=== PATIENT | female | born 1985 | race Caucasian/White ===

== ENCOUNTER 2020-11-29 09:05 | Day surgery (SDC) | payer OTHER ==
[~2020-11-29] VITALS: Ht 162.6 cm; Wt 72.3 kg
[~2020-11-29 09:05] MED LIST: B COMPLEX WITH1 EACH PO; PROP10 PO
--- NOTE | 2020-11-29 10:27 | NUR ---
Ambulatory in Day Surgery History, Chart, Medications and Allergies reviewed before start of procedure.Lungs clear T/O to Auscultation. Patient confirms NPO status and agrees with scheduled surgery. PT TEMPERATURE TAKEN AFTER WARM BLANKETS HAD BEEN ON. SHOWED SEDATION RN EKG STRIP DUE TO IRREGULAR RYTHYM.
--- NOTE | 2020-11-29 10:31 | NUR ---
11/29/20 1031 Alexsander Brandt History, Chart, Medications and Allergies reviewed before start of procedure. MONITOR INTACT WITH CONTINUOUS PULSE OXIMETRY AND INTERMITTENT BP. 3-LEAD EKG REVIEWED WITH PHYSICIAN PRIOR TO START OF PROCEDURE. O2 VIA N/C INTACT THROUGHOUT SEDATION/PROCEDURE. HURRICAINE SPRAY TO OROPHARYX. Bite Block Placed. PATIENT DETERMINED TO BE ASA APPROPRIATE FOR PROPOFOL SEDATION PRIOR TO START OF PROCEDURE BY DR. SMART.
--- NOTE | 2020-11-29 11:25 | NUR ---
Patient up to Ambulate independently. Gait steady. Discharge instructions reviewed with patient. Patient verbalizes understanding. Copy given to patient to take home. Discharged via wheelchair to private car for ride home.
== END 2020-11-29 11:26 | disposition home or self-care (01) ==
LOC: ORSCMMR 09:05 → ORD 10:00 → ORSCMMR 10:00
PROVIDERS: Internal Medicine Gastroenterology
PROC: 0DB98ZX Excision of Duodenum, Via Natural or Artificial Opening Endoscopic, Diagnostic (ICD-10-PCS; principal; 2020-11-29 10:00)
PROC: 0DB68ZX Excision of Stomach, Via Natural or Artificial Opening Endoscopic, Diagnostic (ICD-10-PCS; principal; 2020-11-29 10:00)
PROC: 0DB58ZX Excision of Esophagus, Via Natural or Artificial Opening Endoscopic, Diagnostic (ICD-10-PCS; principal; 2020-11-29 10:00)
DX: R10.13 Epigastric pain (principal); R11.2 Nausea with vomiting, unspecified; R19.4 Change in bowel habit; R03.0 Elevated blood-pressure reading, without diagnosis of hypertension; Z79.899 Other long term (current) drug therapy
CPT/HCPCS: 88305; 88342; A9270; J2704; J7120

== ENCOUNTER → 2022-03-01 | Outpatient (CLI) | payer OTHER | END | disposition home or self-care (01) | LOC: LAB SHORT 07:45 → LAB 07:45 | PROVIDERS: Internal Medicine Endocrinology, Diabetes & Metabolism | DX: E28.1 Androgen excess (principal) | CPT/HCPCS: 36415 ==

== ENCOUNTER → 2022-03-06 | Outpatient (CLI) | payer OTHER ==
[2022-03-06 20:16] LABS: Free Thyroxine 1.32 ng/dL (0.70-1.60); Percent Saturation 34.3 % (15.0-50.0)
[2022-03-06 20:19] LABS: Thyroid Stimulating Hormone 0.536 uIU/mL (0.360-4.800)
== END | disposition home or self-care (01) ==
LOC: LAB 09:00 → LAB SHORT 09:00
PROVIDERS: Family Medicine
DX: D50.9 Iron deficiency anemia, unspecified (principal); E06.3 Autoimmune thyroiditis
CPT/HCPCS: 82728; 83540; 83550; 84439; 84443

== ENCOUNTER → 2022-09-18 | Outpatient (CLI) | payer OTHER ==
[2022-09-18 20:04] LABS: Free Thyroxine 1.17 ng/dL (0.70-1.60); Magnesium, Blood 2.4 mg/dL (1.6-2.4); Percent Saturation 31.4 % (15.0-50.0)
[2022-09-18 20:07] LABS: Bun/Creatinine Ratio 12.9 (12.0-20.0); Calcium, Blood 9.3 mg/dL (8.5-10.1); Creatinine, Blood 0.7 mg/dL (0.40-1.00); Potassium, Blood 3.6 mmol/L (3.5-5.5); Thyroid Stimulating Hormone 1.3 uIU/mL (0.360-4.800); Triiodothyronine, Free 2.24 pg/mL (2.18-3.98)
== END | disposition home or self-care (01) ==
LOC: LAB 13:40 → LAB SHORT 13:40
PROVIDERS: Family Medicine
DX: I47.1 Supraventricular tachycardia (principal); D50.9 Iron deficiency anemia, unspecified
CPT/HCPCS: 80048; 82728; 83540; 83550; 83735; 84439; 84443; 84481

== ENCOUNTER → 2023-03-13 | Outpatient (CLI) | payer OTHER ==
[~2023-03-13] MED LIST changes: +EUTHYROX50 MCG
== END ==
LOC: LAB SHORT 09:27 → LAB 09:27
PROVIDERS: Physician Assistant Medical
DX: R19.5 Other fecal abnormalities (principal); R19.7 Diarrhea, unspecified; R10.84 Generalized abdominal pain
CPT/HCPCS: 82653; 83993

== ENCOUNTER 2023-03-15 08:33 | Day surgery (SDC) | payer OTHER ==
[~2023-03-15] VITALS: Ht 162.6 cm; Wt 62.0 kg
[~2023-03-15 08:33] MED LIST changes: -EUTHYROX50 MCG
[2023-03-15] MEDS ORDERED: EUTHYROX50 MCG (08:57)
[2023-03-15 10:37] VITALS: BP 107/76
--- NOTE | 2023-03-15 10:41 | NUR ---
03/15/23 Susan1 Ame Styles IV REMOVED, CATH INTACT, SITE WNL PATIENT C/O ABDOMINAL CRAMPING 5/10 STATES TOLERABLE AND APPEARS NOT TO BE CONCERNED. RN EXPLAINED TO PT THAT CRAMPING SHOULD IMPROVE AND PASSING GAS OR A HEATING PAD APPLIED MAY HELP ALLEVIATE THIS FEELING. PATIENT VERBALIZED UNDERSTANDING AND EXPRESSES READINESS TO GO HOME.
== END 2023-03-15 10:41 | disposition home or self-care (01) ==
LOC: ORSCSDS 08:33
PROVIDERS: Specialist
PROC: 0DB98ZX Excision of Duodenum, Via Natural or Artificial Opening Endoscopic, Diagnostic (ICD-10-PCS; principal; 2023-03-15 09:45)
PROC: 0DB68ZX Excision of Stomach, Via Natural or Artificial Opening Endoscopic, Diagnostic (ICD-10-PCS; principal; 2023-03-15 09:45)
PROC: 0DBP8ZX Excision of Rectum, Via Natural or Artificial Opening Endoscopic, Diagnostic (ICD-10-PCS; principal; 2023-03-15 09:45)
PROC: 0DBE8ZX Excision of Large Intestine, Via Natural or Artificial Opening Endoscopic, Diagnostic (ICD-10-PCS; principal; 2023-03-15 09:45)
DX: R19.4 Change in bowel habit (principal); R10.84 Generalized abdominal pain; E07.9 Disorder of thyroid, unspecified; Z79.899 Other long term (current) drug therapy
CPT/HCPCS: 88305; 88342; J2704; J7120

== ENCOUNTER → 2023-03-27 | Outpatient (CLI) | payer OTHER ==
[~2023-03-27] MED LIST changes: +EUTHYROX50 MCG
[2023-03-28 15:09] LABS: HPV 16 Negative (Negative); HPV 18 Negative (Negative); HPV OTHER HR TYPES Negative (Negative)
== END ==
LOC: LAB 14:30 → LAB SHORT 14:30
PROVIDERS: Registered Nurse Community Health
DX: Z12.4 Encounter for screening for malignant neoplasm of cervix (principal)
CPT/HCPCS: 87624; G0145

== ENCOUNTER → 2023-03-29 | Outpatient (CLI) | payer OTHER ==
[2023-03-29 20:02] LABS: Free Thyroxine 0.88 ng/dL (0.70-1.60)
[2023-03-29 20:08] LABS: Thyroid Stimulating Hormone 3.34 uIU/mL (0.360-4.800)
[2023-04-01 13:08] LABS: THYROGLOBULIN ANTIBODY 76.3 IU/mL (0.0-0.9)
== END ==
LOC: LAB 18:38 → LAB SHORT 18:38
PROVIDERS: Family Medicine
DX: E03.9 Hypothyroidism, unspecified (principal); K90.0 Celiac disease
CPT/HCPCS: 83516; 84439; 84443; 86376; 86800

== ENCOUNTER → 2023-07-02 | Outpatient (CLI) | payer OTHER ==
[2023-07-02 22:49] LABS: Free Thyroxine 0.93 ng/dL (0.70-1.60); Percent Saturation 17.5 % (15.0-50.0)
[2023-07-02 22:54] LABS: Thyroid Stimulating Hormone 2.33 uIU/mL (0.360-4.800); Triiodothyronine, Free 2.6 pg/mL (2.18-3.98)
[2023-07-06 18:09] LABS: IMMUNOGLOBULIN A, QN, SERUM 148 mg/dL (87-352); T-TRANSGLUTAMINASE (TTG) IGA <2 U/mL (0-3); T-TRANSGLUTAMINASE (TTG) IGG 4 U/mL (0-5)
== END | disposition home or self-care (01) ==
LOC: LAB 15:00 → LAB SHORT 15:00
PROVIDERS: Family Medicine
DX: E03.9 Hypothyroidism, unspecified (principal); K90.0 Celiac disease; D50.9 Iron deficiency anemia, unspecified
CPT/HCPCS: 82728; 82784; 83516; 83540; 83550; 84439; 84443; 84481; 86258; 86364

== ENCOUNTER → 2023-11-12 | Outpatient (CLI) | payer OTHER ==
[2023-11-12 19:59] LABS: BASOPHILS ABSOLUTE AUTO 0.09 K/mm3 (0.00-0.23); BASOPHILS PERCENT AUTO 1 % (0-2); EOSINOPHILS ABSOLUTE AUTO 0.21 K/mm3 (0.00-0.68); EOSINOPHILS PERCENT AUTO 3 % (0-6); Hematocrit 41.4 % (33.0-51.0); Hemoglobin 13.9 g/dL (11.5-16.0); IMMATURE GRAN ABSOLUTE AUTO 0.03 K/mm3 (0.00-0.10); IMMATURE GRAN PERCENT AUTO 0 % (0-1); LYMPHOCYTES ABSOLUTE AUTO 2.25 K/mm3 (0.84-5.20); LYMPHOCYTES PERCENT AUTO 29 % (21-46); MONOCYTES ABSOLUTE AUTO 0.59 K/mm3 (0.16-1.47); MONOCYTES PERCENT AUTO 8 % (4-13); Mean Corpuscular HGB 29.9 pg (26.0-34.0); Mean Corpuscular HGB Conc 33.6 g/dL (31.5-36.5); Mean Corpuscular Volume 89 fL (80-100); NEUTROPHILS ABSOLUTE AUTO 4.66 K/mm3 (1.96-9.15); NEUTROPHILS PERCENT AUTO 60 % (41-73); Platelet Count 349 K/mm3 (150-400); RDW Coefficient Variation 12.4 % (11.7-14.2); Red Blood Cell Count 4.65 M/mm3 (3.80-5.20); White Blood Cell Count 7.83 K/mm3 (4.00-11.30)
[2023-11-12 21:26] LABS: CHOL/HDL RATIO 3.3; Cholesterol 189 mg/dL (50-200); Ferritin, Serum 24 ng/mL (8-252); Free Thyroxine 0.95 ng/dL (0.70-1.60); HDL Cholesterol 58 mg/dL (>39); Iron Serum 87 ug/dL (50-170); LDL/HDL RATIO 1.9; Low Density Lipoprotein Chol 112 mg/dL (0-110); Percent Saturation 21.5 % (15.0-50.0); Total Iron Binding Capacity 404 ug/dL (250-450); Triglycerides 95 mg/dL (30-140); Triiodothyronine, Free 3.24 pg/mL (2.18-3.98); Very Low Density Lipoprot Chol 19 mg/dL (6-28)
[2023-11-14 17:18] LABS: THYROID PEROXIDASE (TPO) AB 13.3 IU/mL (0.0-9.0)
[2023-11-18 01:52] LABS: THYROGLOBULIN ANTIBODY 42.6 IU/mL (0.0-4.0)
== END ==
LOC: LAB SHORT 19:17 → LAB 19:17
PROVIDERS: Family Medicine
DX: E03.9 Hypothyroidism, unspecified (principal); R73.9 Hyperglycemia, unspecified; N93.9 Abnormal uterine and vaginal bleeding, unspecified; Z13.220 Encounter for screening for lipoid disorders
CPT/HCPCS: 80061; 82728; 83036; 83540; 83550; 84432; 84439; 84443; 84481; 85025; 86376; 86800

== ENCOUNTER 2024-08-07 06:55 | Day surgery (SDC) | payer OTHER ==
[~2024-08-07 06:55] MED LIST changes: +Cosyntropin 0.25 MG / ML 1ML Vial IV SCH
[2024-08-07 08:44] VITALS: BP 140/112
[2024-08-07] MEDS ORDERED: PROP10 PO (08:47)
== END 2024-08-07 09:48 | disposition home or self-care (01) ==
LOC: ATC 06:55
DX: E27.1 Primary adrenocortical insufficiency (principal); I10 Essential (primary) hypertension; E06.3 Autoimmune thyroiditis; K90.0 Celiac disease; F41.0 Panic disorder [episodic paroxysmal anxiety]; Z79.899 Other long term (current) drug therapy
CPT/HCPCS: 80400; 82533; 96374; J0834

== ENCOUNTER → 2024-11-06 | Outpatient (CLI) | payer OTHER ==
[~2024-11-06] MED LIST changes: -Cosyntropin 0.25 MG / ML 1ML Vial IV SCH
[2024-11-06 19:48] LABS: Free Thyroxine 0.92 ng/dL (0.70-1.60); Percent Saturation 12.4 % (15.0-50.0)
[2024-11-06 19:50] LABS: Thyroid Stimulating Hormone 2.3 uIU/mL (0.360-4.800); Triiodothyronine, Free 2.59 pg/mL (2.18-3.98)
== END | disposition home or self-care (01) ==
LOC: LAB SHORT 18:46 → LAB 18:46
PROVIDERS: Family Medicine
DX: E61.1 Iron deficiency (principal); E03.9 Hypothyroidism, unspecified
CPT/HCPCS: 82728; 83540; 83550; 84432; 84439; 84443; 84481; 86800

== ENCOUNTER 2024-12-30 06:18 | Day surgery (SDC) | payer OTHER ==
[~2024-12-30 06:18] MED LIST changes: +Sod Ferric Gluc Complx/Sucrose 125 MG in NS 100 ML IV SCH
[2024-12-30] MEDS ORDERED: Prozac20 MG PO (16:18)
[2024-12-30 16:33] VITALS: BP 137/102
== END 2024-12-30 17:27 | disposition home or self-care (01) ==
LOC: ATC 06:18
DX: D50.9 Iron deficiency anemia, unspecified (principal); I10 Essential (primary) hypertension; F41.1 Generalized anxiety disorder; E03.9 Hypothyroidism, unspecified; Z79.899 Other long term (current) drug therapy
CPT/HCPCS: 96365; J2916

== ENCOUNTER 2025-02-03 04:14 | Day surgery (SDC) | payer OTHER ==
[~2025-02-03 04:14] MED LIST changes: +Prozac20 MG PO
[2025-02-03 11:21] VITALS: BP 129/99
== END 2025-02-03 12:08 | disposition home or self-care (01) ==
LOC: ATC 04:14
DX: D50.9 Iron deficiency anemia, unspecified (principal); E06.3 Autoimmune thyroiditis; I10 Essential (primary) hypertension; D86.9 Sarcoidosis, unspecified; Z79.2 Long term (current) use of antibiotics; Z79.899 Other long term (current) drug therapy
CPT/HCPCS: 96365; J2916

== ENCOUNTER 2025-02-17 01:26 | Day surgery (SDC) | payer OTHER ==
[2025-02-17 16:34] VITALS: BP 124/97
== END 2025-02-17 17:35 | disposition home or self-care (01) ==
LOC: ATC 01:26
DX: D50.9 Iron deficiency anemia, unspecified (principal); E03.9 Hypothyroidism, unspecified; I10 Essential (primary) hypertension; Z79.899 Other long term (current) drug therapy
CPT/HCPCS: 96365; J2916